=== PATIENT | female | born 1970 | race Caucasian/White ===

== ENCOUNTER 2018-03-02 05:30 | Day surgery (SDC) | payer OTHER ==
[2018-03-02] MEDS ORDERED: COLACE100 MG PO (08:57)
[2018-03-02] MEDS ORDERED: PERCOCET 5-3251 EACH PO (08:57)
== END 2018-03-02 15:05 | disposition home or self-care (01) ==
LOC: CIR.AMB 05:30
DX: K64.4 Residual hemorrhoidal skin tags (principal)